=== PATIENT | female | born 1980 | race Caucasian/White ===

== ENCOUNTER 2017-05-13 11:43 | Emergency (ER) | payer OTHER ==
[~2017-05-13] VITALS: Ht 157.5 cm; Wt 69.8 kg
[~2017-05-13 11:43] MED LIST: CLINDAMYCIN HC300 MG PO; EXCEDRIN MIGRA1 EAC2 PO; IBUPROFEN600 MG PO; IBUPROFEN800 MG PO; NORCO 10-325 T1 EACH PO; ORTHO TRI-CYCL1 EACH PO; PENICILLIN V P500 MG PO; PERCOCET 5-3251 EACH PO
--- NOTE | 2017-05-14 01:00 | EKG ---
[facility] [address] [facility] [place], [place] [address] Signed Normal sinus rhythm Normal ECG No previous ECGs available Confirmed by KUSUM RUSS MD ([id number]) on 05/14/2017 1:00:30 AM Electronically Signed By: KUSUM RUSS MD 05/14/17 0100 PATIENT NAME: HARRISON LICEA Electrocardiogram DATE OF : 78 PHYSICIAN: KUSUM RUSS MD REPORT #: [id number] REPORT IS CONFIDENTIAL AND NOT TO BE RELEASED WITHOUT AUTHORIZATION
== END 2017-05-13 14:14 | disposition home or self-care (01) ==
LOC: ED 11:43
DX: O99.89 Other specified diseases and conditions complicating pregnancy, childbirth and the puerperium (principal); R07.9 Chest pain, unspecified; O99.332 Smoking (tobacco) complicating pregnancy, second trimester; F17.200 Nicotine dependence, unspecified, uncomplicated; Z3A.26 26 weeks gestation of pregnancy; Z79.891 Long term (current) use of opiate analgesic
CPT/HCPCS: 71020; 80053; 84484; 85025; 93005; 93010; 99284

== ENCOUNTER 2017-08-05 16:58 | Inpatient (IN) | payer OTHER ==
[~2017-08-05] VITALS: Ht 157.5 cm; Wt 79.0 kg
--- NOTE | 2017-08-07 11:05 | PR ---
[facility] [address] [facility] [place], [place] [address] Signed PP Progress Notes Datetime Report Generated by CPN: 08/07/2017 11:05 SUBJECTIVE: [id number] Pain: Within normal limits Nausea/Vomiting: Denies Vital Signs: [id number] Vital Signs: Reviewed; Within Normal Limits Notable Details: PP HGb/Hct = 9.0/26.4 EXAM: [id number] Abdomen/Uterus: Normal Lochia: Normal Extremities: Normal IMPRESSION/PLAN/PROCEDURES: [id number] Impression: Normal progression Plan: Continue present management Procedures: None Progress Notes: Doing well, without complaint Signing Physician: Naomi Craven MD CC: *Electronically Signed* 08/07/17 1105 NAOMI CRAVEN MD PATIENT NAME: HARRISON LICEA PROGRESS NOTE DATE OF : 78 PHYSICIAN: NAOMI CRAVEN MD RPT #: [id number] REPORT IS CONFIDENTIAL AND NOT TO BE RELEASED WITHOUT AUTHORIZATION
--- NOTE | 2017-08-08 11:13 | PR ---
[facility] [address] [facility] [place], [place] [address] Signed PP Progress Notes Datetime Report Generated by CPN: 08/08/2017 11:13 SUBJECTIVE: [id number] Pain: Within normal limits Nausea/Vomiting: Denies Vital Signs: [id number] Vital Signs: Reviewed; Within Normal Limits Notable Details: PP HGb/Hct = 9.0/26.4 EXAM: [id number] Abdomen/Uterus: Normal Lochia: Normal Extremities: Normal Exam Comments: DTR's 2+ no clonus. No edema. IMPRESSION/PLAN/PROCEDURES: [id number] Impression: Normal progression Plan: Discharge Procedures: None Progress Notes: No NAQVI's, no vision changes. Doing well, ready to go home. Signing Physician: Naomi Craven MD CC: *Electronically Signed* 08/08/17 1113 NAOMI CRAVEN MD PATIENT NAME: HARRISON LICEA PROGRESS NOTE DATE OF : 78 PHYSICIAN: NAOMI CRAVEN MD RPT #: [id number] REPORT IS CONFIDENTIAL AND NOT TO BE RELEASED WITHOUT AUTHORIZATION
== END 2017-08-08 11:30 | disposition home or self-care (01) | DRG 775 ==
LOC: FBCO 16:58 → FBC 19:00
PROVIDERS: ADMIT General Practice
PROC: 10E0XZZ Delivery of Products of Conception, External Approach (ICD-10-PCS; principal; 2017-08-06)
PROC: 0HQ9XZZ Repair Perineum Skin, External Approach (ICD-10-PCS; 2017-08-06)
PROC: 00HU33Z Insertion of Infusion Device into Spinal Canal, Percutaneous Approach (ICD-10-PCS; 2017-08-06)
PROC: 3E0R3CZ (ICD-10-PCS; 2017-08-06)
PROC: 3E0234Z Introduction of Serum, Toxoid and Vaccine into Muscle, Percutaneous Approach (ICD-10-PCS; 2017-08-08)
DX: O14.94 Unspecified pre-eclampsia, complicating childbirth (principal); Z37.0 Single live birth; Z23 Encounter for immunization; O70.0 First degree perineal laceration during delivery; Z3A.38 38 weeks gestation of pregnancy; O99.334 Smoking (tobacco) complicating childbirth; F17.210 Nicotine dependence, cigarettes, uncomplicated; O13.4 Gestational [pregnancy-induced] hypertension without significant proteinuria, complicating childbirth
CPT/HCPCS: 01960; 36415; 59025; 82565; 82570; 84156; 84450; 84520; 84550; 85025; 85027; 90707; 99213; J2540; J2550; J3010; J7120

== ENCOUNTER 2020-08-16 16:59 | Emergency (ER) | payer SELFPAY | END 2020-08-16 20:05 | disposition home or self-care (01) | LOC: ED 16:59 | DX: N93.9 Abnormal uterine and vaginal bleeding, unspecified (principal); F17.200 Nicotine dependence, unspecified, uncomplicated ==

== ENCOUNTER 2021-06-24 20:23 | Inpatient (IN) | payer SELFPAY ==
[~2021-06-24] VITALS: Ht 160 cm; Wt 79.4 kg
--- OUTSIDE RECORDS SUMMARY | 2021-06-24 20:30 | XMS ---
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 Lori has no Care Guidelines for this patient. [place] VISIT COUNT (12 MO.) [address] TOTAL 4 NOTE: Visits indicate total known visits. ED/C VISIT TRACKING (12 MO.) [facility] COMPLAINT: - DIFFICULTY BREATHING 06/18/2021 17:21 [facility] [place] TYPE: Emergency COMPLAINT: - DIFFICULTY BREATHING/WEAKNESS 06/16/2021 01:04 [facility] OR TYPE: Emergency DIAGNOSES: - chest pain, fever, headache - COVID-19 08/16/2020 16:59 [facility] [place] TYPE: Emergency COMPLAINT: - VAGINAL BLEEDING DIAGNOSES: - Abnormal uterine and vaginal bleeding, unspecified - Nicotine dependence, unspecified, uncomplicated - Delayed or excessive hemorrhage following incomplete spontaneous - Abnormal uterine and vaginal bleeding, unspecified INPATIENT VISIT TRACKING (12 MO.) No inpatient visits to display in this time frame [email or web address]
--- NOTE | 2021-06-24 23:59 | NUR ---
PT TO ROOM 118 VIA STRETCHER FROM ED. ALERT AND ORIENTED. ABLE TO TRANSFER SELF TO BED FROM STRETCHER. INCREASED RESPIRATIONS NOTED. 2.5L/NC IN PLACE. SpO2 95%. HR 100'S. AT REST PT REPORTS "SLIGHT" SOB AND PAIN WITH DEEP BREATHING. DRY COUGH NOTED. IV MEDICATION INFUSING WNL. PT EDUCATED ON PRONING. PT ORIENTED TO ROOM AND NURSE CALL LIGHT. SANDWICH BOX PROVIDED. WATER AND JUICE PROVIDED. NO FURTHER QUESTIONS OR CONCERNS AT THIS TIME. CALL LIGHT IN REACH.
--- NOTE | 2021-06-25 02:01 | NUR ---
PT ON LEFT SIDE RESTING WITH EYES CLOSED. SpO2 90-93% ON 2.5L/NC. HR 90'S. RESPIRATIONS 26.
--- NOTE | 2021-06-25 03:23 | NUR ---
PT RESTING IN BED ON LEFT SIDE WITH EYES CLOSED. RESPIRATIONS EVEN. SpO2 92% ON 2.5L/NC. HR 80'S.
--- NOTE | 2021-06-25 06:51 | NUR ---
ASSESSMENT COMPLETE. CRACKLES HEARD THROUGHOUT. SpO2 >90% ON 2.5 L/NC. PT REPORTS "FEELING MUCH BETTER ALREADY WITH THE OXYGEN". RESPIRATIONS EVEN. DRY COUGH NOTED. PT DENIES PAIN OR NAUSEA. NO FURTHER NEEDS. CALL LIGHT IN REACH.
--- NOTE | 2021-06-25 07:30 | NUR ---
RECEIVED REPORT AROUND 0700, PT WAS SLEEPING AT THAT TIME. NO NEW CONCERNS NOTED.
--- NOTE | 2021-06-25 08:17 | NUR ---
PATIENT AWAKE IN BED, VITALS CHARTED. FACE AND HANDS WASHED. CALL LIGHT IN REACH, NO OTHER NEEDS AT THIS TIME
--- NOTE | 2021-06-25 09:15 | NUR ---
UPPER LOBES CLEAR, LOWER LOBES ARE TIGHT. PT DOES STILL HAVE SOB AND TACHYCARDIA WITH ACTIVITY AND REMAINS ON 2.5L O2 NC. PT DID HOWEVER STATE THAT SHE WAS FEELING BETTER THAN YESTERDAY. NO OTHER CONCERNS WERE NOTED WITH FIRST ASSESSMENT THIS MORNING. WILL CONTINUE TO MONITOR.
--- NOTE | 2021-06-25 11:15 | NUR ---
PT IN ROOM. NO NEW CONCERNS NOTED AT THIS TIME.
--- NOTE | 2021-06-25 12:30 | NUR ---
UPPER LOBES CLEAR, LOWER LOBES STILL TIGHT WITH SOME COARSNESS NOTED. NO OTHER CONCERNS NOTED WITH ASSESSMENT. PT O2 STATUS UNCHANGED. V/S WDL, URINE OUTPUT WDL SO FAR.
--- NOTE | 2021-06-25 13:50 | NUR ---
Spoke with Liana by phone. States she tires easily, but is holli g to complete assessment. Pt lives in a 2 story home and was having trouble walking up and down stairs due to sob. She has children ages 3-25 living in her home and older ones will assist her. She does not use any DME. States she is laid off and does not have any insurance. Informed I have called May to assist her for OHP. States she has been staying with mom for the last week. I can hear pt becoming more sob as we speak and inform I will call her tomorrow and she state s she is ok, but I ended the call. Pt currently on .. Will check in with tomorrow.
--- NOTE | 2021-06-25 14:34 | NUR ---
PT IN ROOM, NO NEW CONCERNS NOTED.
--- NOTE | 2021-06-25 15:54 | NUR ---
Called to schedule appt with [facility] and pt was dc from their services and they will not take her back. Called and attempted to schedule with Camilla Lopez at [facility], office will call me back if they can accept her. Camilla Lopez is out of the office until the end of July, but this may be the best we can do as pt has a history of no showing for appts.
--- NOTE | 2021-06-25 16:43 | NUR ---
PATIENT AWAKE IN BED, THIS CHUTE BOSS EDUCATED PATIENT ON USING INCENTIVE SPIROMETER. PATIENT EXPRESSES UNDERSTANDING. PATIENT STATES SHE FEELS SOMEWHAT REFRESHED AFTER PRONING A FEW TIMES THIS AFTERNOON. RN NOTIFIED. FRESH ICE WATER PROVIDED, CALL LIGHT IN REACH, NO OTHER NEEDS AT THIS TIME
--- NOTE | 2021-06-25 16:49 | NUR ---
WHEN ENTERING PT ROOM IT WAS NOTED THAT O2 SATS ON 2L O2 NC WERE JUST AT 90%. RR 24. O2 SATS DROPPED TO 87% WITH TALKING. O2 WAS INCREASED TO 5L WITH NO CHANGE. PT NOW IS ON HIGH FLOW NC AT 5L O2. O2 SATS NOW UP TO 94%. RLL HAS NO SOUND PRESENT. ALL OTHE LOBES ARE TIGHT. PT IS USING IS BUT FOR ME WAS ONLY ABLE TO BRING IT UP TO 250. WILL CONTINUE TO MONITOR AND WILL LET MD KNOW.
--- NOTE | 2021-06-25 18:42 | NUR ---
PT WAS ON 2L O2 NC UNTIL ABOUT 1600 WHEN IT WAS NOTED THAT PT BARLEY STAYED AT 90% WHILE STILL IN BED. WHEN TALKING O2 SATS DROPPED TO 87% OR SO. PT IS USING I.S. AND IS ONLY ABLE TO GET IT UP TO ABOUT 250. RR WAS ALSO 24. AWARE. PT SINCE 1600 ON 5L O2 HIGH FLOW NC AND DOING WELL WITH IT. ALL LOBES ARE TIGHT AND HER RLL SOUNDS ARE ABSENT. PO INTAKE IS GOOD, URINE OUTPUT IS GOOD. NO OTHER ISSUES NOTED WITH ASSESSMENTS.
--- NOTE | 2021-06-25 19:17 | EKG ---
[facility] [address] [facility] [place], [place] [address] Signed Sinus tachycardia Possible Inferior infarct , age undetermined Abnormal ECG When compared with ECG of 13-MAY-2017 11:51, Borderline criteria for Inferior infarct are now present Confirmed by DYLAN CARCAMO DO ([id number]) on 06/25/2021 7:16:57 PM Electronically Signed By: DYLAN CARCAMO DO 06/25/211916 PATIENT NAME: ANUJAHARRISON CUNNINGHAM Electrocardiogram DATE OF : 78 PHYSICIAN: DYLAN CARCAMO DO REPORT #: [id number] REPORT IS CONFIDENTIAL AND NOT TO BE RELEASED WITHOUT AUTHORIZATION
--- NOTE | 2021-06-25 20:15 | NUR ---
PATIENT SITTING QUIETLY IN HER BED WATCHING TV AND HAS ASKED FOR CHOCOLATE MILK. PATIENT HAS NO OTHER CARE NEEDS AT THIS TIME. CALL LIGHT IS IN REACH. NEUROCRITICAL CARE PHYSICIAN CALLED TO GET CHOCOLATE MILK.
--- NOTE | 2021-06-25 21:12 | NUR ---
PATIENT HAS NOT RECIEVED HER CHOCOLATE MILK. CALLED THE GREEN PLUMBER AND SHE IS ON HER WAY TO THE KITCHEN TO GET CHOCOLATE MILK NOW. PATIENT INFORMED.
--- NOTE | 2021-06-25 21:40 | NUR ---
WELT STITCHER CAME AND INFORMED THIS RN WE HAVE NO CHOCOLATE MILK. PMAELA CHURCH HISTORY TEACHER GOING TO TELL THE PATIENT AND TO GET HER SOME HOT CHOCOLATE MIX IN REGULAR MILK AND TO GIVE PATIENT SOME CANDY A FRIEND DROPPED OFF FOR THE PATIENT.
--- NOTE | 2021-06-25 23:10 | NUR ---
PATIENT'S PM MEDS GIVEN ALONG WITH REQUESTED COUGH SYRUP AND TYLENOL FOR GENERAL BODY ACHES. PATIENT GIVEN NEW ICE WATER, TOILET HAT EMPTIED, VS STABLE AND I+O COMPLETE. PATIENT GIVEN GARNETT AND MUSTARD FOR HER SANDWICH WITH A PLASTIC KNIFE AND NAPKIN. PATIENT HAS NO OTHER CARE NEEDS AT THIS TIME. WILL RETURN WHEN PATIENT'S IV INFUSION IS COMPLETE. CALL LIGHT IS IN REACH.
--- NOTE | 2021-06-26 00:03 | NUR ---
PATIENT CALLED AND HER IV IS BEEPING. PATIENT'S IV INFUSION IS COMPLETE AND IV SALINE LOCKED. PATIENT HAS NO OTHER CARE NEEDS AT THIS TIME. CALL LIGHT IS IN REACH.
--- NOTE | 2021-06-26 02:00 | NUR ---
PATIENT RESTING ON HER RIGHT SIDE, EYES CLOSED, RESPIRATIONS REGULAR AND EVEN, CALL LIGHT IN REACH. O2 SATS 95% ON 5L/NC. HR=68 ON THE SAT MONITOR.
--- NOTE | 2021-06-26 03:19 | NUR ---
CHECKED IN WITH PATIENT SHE HAS NO NEEDS AT THIS TIME. "I'M FINE," SHE SAYS. SATS ARE 96% ON 5L/NC AND HR=69 PER SAT MONITOR. CALL LIGHT IS IN REACH.
--- NOTE | 2021-06-26 03:22 | NUR ---
PATIENT RESTING QUIETLY ON HER RIGHT SIDE IN BED. PATIENT'S EYES ARE CLOSED, RESPIRATIONS ARE REGULAR AND EVEN, AND HER CALL LIGHT IS IN REACH. PATIENT'S GRANDMOTHER IS ASLEEP ON THE COUCH IN THE ROOM.
--- NOTE | 2021-06-26 04:50 | NUR ---
PATIENT RESTING QUIETLY ON HER LEFT SIDE, EYES CLOSED, RESPIRATIONS REGULAR AND EVEN, CALL LIGHT IN REACH. O2 SATS=96% ON 5L/NC. CALL LIGHT IN REACH.
--- NOTE | 2021-06-26 06:53 | NUR ---
PATIENT SAYS SHE WAS ABLE TO SLEEP AFTER MY ROUNDS AFTER 2AM, BUT WOKE UP WHEN LAB CAME IN TO DRAW. PATIENT GOT UP AND VOIDED INDEPENDENTLY AND TOILET HAD DUMPED. PATIENT HAD NO OTHER CARE NEEDS AT THIS TIME AND IS SATING 96% ON HER 5L/NC HIGH FLOW. CALL LIGHT IS IN REACH.
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
--- NOTE | 2021-06-26 12:38 | NUR ---
ROUNDING ON PT. SHE STATES SHE IS DOING WELL AND IS NOT HUNGRY FOR LUNCH AT THIS TIME.
--- NOTE | 2021-06-26 14:26 | NUR ---
PT. IS UP IN THE CHAIR. SHE HAS PRONED TWICE THIS SHIFT AND IS USING I.S. HOURLY. CRACKLES PRESENT IN THE BASES OF LUNGS. AND BREATHING IS STILL SHALLOW. NONPRODUCTIVE COUGH. SHE STATES SHE IS ANXIOUS TO SEE KIDS AND REQUESTED THAT BRINGS WORRY STONE. DENIES HX OF ANXIETY. ON 3L O2 NC AND O2 SAT IS 91%. PT. BROUGHT WATER AND LEFT RESTING WITH CALL LIGHT IN REACH.
--- NOTE | 2021-06-26 15:37 | NUR ---
No chnge in plan for discharge. Appt scheduled with Camilla SALAS at [facility].
--- NOTE | 2021-06-26 18:05 | NUR ---
PT. USED CALL LIGHT APPROPRIATELY AND ASKED THIS NURSE TO BRING CREDIT CARD TO THE CELLULAR PHONE REPAIRER FOR HER TO DAY CARE HOME PROVIDER IN ORDER TO PAY FOR CHILDREN'S DINNER. CARD LEFT IN EVELOPE AT THE CELLULAR PHONE REPAIRER WITH INSTRUCTIONS TO ASK FOR I.D. BEFORE RELEASING.
--- NOTE | 2021-06-26 19:27 | NUR ---
Awake, watching tv, no c/o pain or sob
--- NOTE | 2021-06-26 21:00 | NUR ---
COOP WITH ASSESSMENT, O2 3.5L IN PLACE, LUNGS WITH DFINE CRACKLES, SOBWITH EXERTION, CPOX IN PLACE, SATS 85-87%, INCREASED TO 4l HIGH FLOW O2, SATS 90-91%. SHALLOW FAST RESPIRATION NOTED ON RETURN TO BED FROM BR. VOIDING QS AND TOLERATING LIQUIDS WELL, NO EMESIS, NO C/O PAIN. MEDICATED WITH COUGH SYRUP PER C/O DRY NON PRODUCTIVE COUGH. SL PATENT. INDEPENDENT INROOM, CONTINUES ON AIRBORNE ISOLATION PRECAUTIONS
--- NOTE | 2021-06-27 03:00 | NUR ---
pt reasting, eyes closed, no distress. cont on airborne isolation precautions.
--- NOTE | 2021-06-27 06:20 | NUR ---
Pt continues on airborne isolation precautions. Independent inroom, on 4LNC, CPOX 90-91%, harsh hacky cough present, received robitussin syrup per cough. SL patent, tolerated remdesevir tx well. SOB noted with exertion when returning to bed or when in phone wth family.c/o pain. cooperative, uses call light, no emesis, tolerating diet well
--- NOTE | 2021-06-27 08:15 | NUR ---
REPORT RECEIVED FROM NIGHT RN AND PT CARE RESUMED. PT IS ALERT AND ORIENTED. SHE STATES SHE HAS BEEN PRONING OVERNIGHT AND CONTINUES TO USE I.S. REGULARLY. SHE APPEARS LESS ANXIOUS. CPOX FINGER MONITOR REPLACED. 02 SAT IS 96% ON 3L NC. PT. REPORTS SOB WITH EXERTION AT TIMES. CRACKLES PRESENT BILAT. IN LOWER LOBES. IV SITE WNL AND FLUSHES WELL. REVIEWED PRONING EDUCATIONAL MATERIAL WITH PATIENT. LEFT RESTING IN BED WITH CALL LIGHT IN REACH.
--- NOTE | 2021-06-27 08:16 | NUR ---
PATIENT AWAKE IN BED. TAI FROM R/T IN ROOM FOR ASSESSMENT. FRESH ICE WATER PROVIDED, FACE AND HANDS WASHED. PATIENT STATED SHE TOOK HER NASAL CANULA OF EARLIER SO SHE COULD REACH THE TOILET, TAI PROVIDED A TUBE LEATHER CASE FINISHER. BREAKFAST PROVIDED. CALL LIGHT IN REACH, NO OTHER NEEDS AT THIS TIME
--- NOTE | 2021-06-27 14:33 | NUR ---
PT. REPORTS FEELING SOB AFTER OXYGEN WAS TITRATED DOWN THIS MORNING, BUT HAD NOT TOLD US EARLIER DUE TO WANTING TO GO HOME. RR WAS 34 AND O2 SAT. BETWEEN 88-91%. TITRATED TO 2L AND O2 SAT. IS 91% CRACKLES STILL PRESENT BILAT. IN BASES OF LUNGS. PT. PRONED AFTER LUNCH AND UP IN THE CHAIR NOW. IV SITE WNL. PT. LEFT RESTING WITH CALL LIGHT IN REACH.
--- NOTE | 2021-06-27 14:33 | NUR ---
PATIENT WITH HIGHER OXYGEN NEED TODAY. NO CHANGES TO DISCHARGE AT THIS TIME.
--- NOTE | 2021-06-27 20:04 | NUR ---
took pt her food delivery, no further needs at this time
--- NOTE | 2021-06-27 21:31 | NUR ---
pt o2 sats 91% on 1.5L. Up to shower. cooperative, denies feeling sob
--- NOTE | 2021-06-27 22:54 | NUR ---
Pt showered, independent in room, tolerated well, sats 88% on return w 2LNC, Resp 28 and went down to 20 after returning to bed. On 2L high flow O2. lungs with insp crackles bilat. amber sob w exertion but her resp go up. sl patent. voiding qs, hacky dry cough present, robitussin cough syrup given on request tolerating diet and fluids well. no c/o pain, pleasant and cooperative, alert and oriented
--- NOTE | 2021-06-28 01:07 | NUR ---
resting, eyes closed, no distress, O2 1LNC, CPOX 90%. continues on airborne precautions
--- NOTE | 2021-06-28 06:09 | NUR ---
Pt currently on 1L NC high flow O2, cpox sats 92%, Lungs with insp crackles, denies sob with exertion but increaesd resp rate noted with exertion. tolerating diet and liquids well, no emesis, no c/o pain, was medicated x1 with cough syrup per dry hacky cough. sl patent. showerd last night, slept mos of this night, voiding QS. on Airborne isolation precautions
--- NOTE | 2021-06-28 08:15 | NUR ---
REPORT RECIEVED FROM NIGHT RN AND PT. CARE RESUMED. PT. IS ALERT, ORIENTED. DENIES PAIN OR SOB. CRACKLES PRESENT BILAT. IN BASES OF LUNGS. PT. DEMONSTRATED USE OF I.S. DISCUSSED POC AND MEDS. CPOX IN PLACE. ON 2L NC AND O2 SAT IS 93%. IV SITE FLUSHES WELL. BREAKFAST BROUGHT IN AND PT. LEFT EATING WITH CALL LIGHT IN REACH.
[2021-06-28] MEDS ORDERED: DEXAMETHASONE6 MG PO (11:54)
--- NOTE | 2021-06-28 12:18 | NUR ---
PT. BROUGHT LUNCH AND UPDATED ON DISCHARGE PLAN
--- NOTE | 2021-06-28 15:07 | NUR ---
ALL DISCHARGE INSTRUCTIONS REVIEWED WITH PATIENT AND QUESTIONS ANSWERED. PT. DEMONSTRATED USE OF O2.SHE LEFT WITH ALL BELONGINGS VIA WHEELCHAIR AND PICKED UP BY MOTHER.
== END 2021-06-28 14:45 | disposition home or self-care (01) | DRG 177 ==
LOC: ED 20:23 → MS 22:33
PROVIDERS: ADMIT Student in an Organized Health Care Education/Training Program; ATTEND Student in an Organized Health Care Education/Training Program
PROC: XW033E5 Introduction of Remdesivir Anti-infective into Peripheral Vein, Percutaneous Approach, New Technology Group 5 (ICD-10-PCS; principal; 2021-06-24)
PROC: 3E0333Z Introduction of Anti-inflammatory into Peripheral Vein, Percutaneous Approach (ICD-10-PCS; 2021-06-24)
DX: U07.1 COVID-19 (principal); J96.01 Acute respiratory failure with hypoxia; J12.82 Pneumonia due to coronavirus disease 2019; F17.210 Nicotine dependence, cigarettes, uncomplicated; Z98.890 Other specified postprocedural states
CPT/HCPCS: 71045; 80053; 83735; 84484; 84703; 85025; 94761; 94762; 96374; 99285-25; A9270; J1100; J1650; J7050

== ENCOUNTER 2021-09-01 21:05 | Emergency (ER) | payer OTHER ==
[~2021-09-01] VITALS: Ht 160 cm; Wt 83.0 kg
[~2021-09-01 21:05] MED LIST changes: +DEXAMETHASONE6 MG PO
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
== END 2021-09-02 00:46 | disposition home or self-care (01) ==
LOC: ED 21:05
DX: S06.0X0A Concussion without loss of consciousness, initial encounter (principal); S80.12XA Contusion of left lower leg, initial encounter; S80.11XA Contusion of right lower leg, initial encounter; F10.129 Alcohol abuse with intoxication, unspecified; Y90.7 Blood alcohol level of 200-239 mg/100 ml; F15.10 Other stimulant abuse, uncomplicated; F17.200 Nicotine dependence, unspecified, uncomplicated; V47.5XXA Car driver injured in collision with fixed or stationary object in traffic accident, initial encounter
CPT/HCPCS: 70450; 71260; 72125; 74177; 80053; 84703; 85025; 99284-25; G0480; Q9967

== ENCOUNTER 2024-11-01 11:28 | Emergency (ER) | payer OTHER ==
[~2024-11-01] VITALS: Ht 160 cm; Wt 83.7 kg
--- OUTSIDE RECORDS SUMMARY | 2024-11-01 11:30 | XMS ---
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 Lori has no Care Guidelines for this patient. [place] VISIT COUNT (12 MO.) 1 [facility] TOTAL 1 NOTE: Visits indicate total known visits. ED/UCC VISIT TRACKING (12 MO.) 11/01/2024 11:29 [facility] TYPE: Emergency COMPLAINT: - SEIZURE INPATIENT VISIT TRACKING (12 MO.) No inpatient visits to display in this time frame [email or web address]
[2024-11-01] MEDS ORDERED: LORazepam 1 MG TAB PO ONE (12:30)
[2024-11-01] MEDS ORDERED: ondansetron HCL 4 MG/2 ML VIAL IV ONE (13:15)
[2024-11-01 13:19] LABS: BASOPHILS 1.2 % (0-2); EOSINOPHILS 4.3 % (0-6); HEMATOCRIT 38.2 % (35.0-50.0); LYMPHOCYTES 27.2 % (24-44); MCH 29.1 (27-36); MCV 85.6 fl (81-99); NEUTROPHILS 56.3 % (39-80); PLATELET COUNT 340 K/uL (140-440); RBC 4.46 M/ul (4.3-5.7); RDW 13.7 (10.5-15.0)
[2024-11-01 13:35] LABS: ALBUMIN 3.7 g/dL (3.4-5.0); ALBUMIN/GLOBULIN RATIO 1.09 (1.1-2.4); ALCOHOL, MEDICAL <3 ng/dL (<3); ALKALINE PHOSPHATASE 86 U/L (46-116); ALT (SGPT) 24 U/L (14-59); ANION GAP 13.3 (7-21); AST (SGOT) 14 U/L (15-37); BILIRUBIN, TOTAL 0.2 ng/dL (0.2-1.0); BUN/CREATININE RATIO 22.78 (6.0-28.6); CALCIUM 8.5 mg/dL (8.5-10.1); CARBON DIOXIDE 27 mmol/L (21-32); CHLORIDE 106 mmol/L (98-107); CREATININE, SERUM 0.79 mg/dL (0.55-1.02); GLOMERULAR FILTRATION RATE,EST 95 mL/min (>60); POTASSIUM 4.3 mmol/L (3.5-5.1); PROTEIN, TOTAL 7.1 g/dL (6.4-8.2); UREA NITROGEN 18 mg/dL (7-18)
[2024-11-01 14:19] LABS: AMPHETAMINES, URINE POSITIVE (NEGATIVE); BARBITURATES, URINE NEGATIVE (NEGATIVE); BENZODIAZEPINE, URINE POSITIVE (NEGATIVE); BUPRENORPHINE, URINE NEGATIVE (NEGATIVE); CANNABINOID, URINE NEGATIVE (NEGATIVE); COCAINE, URINE NEGATIVE (NEGATIVE); ECSTASY, URINE POSITIVE (NEGATIVE); FENTANYL, URINE NEGATIVE (NEGATIVE); METHADONE, URINE NEGATIVE (NEGATIVE); OPIATES, URINE NEGATIVE (NEGATIVE); OXYCODONE, URINE NEGATIVE (NEGATIVE); PHENCYCLIDINE, URINE NEGATIVE (NEGATIVE)
[2024-11-01 14:50] VITALS: BP 129/87
== END 2024-11-01 14:50 | disposition home or self-care (01) ==
LOC: ED 11:28
PROVIDERS: Emergency Medicine
DX: F43.0 Acute stress reaction (principal); F19.10 Other psychoactive substance abuse, uncomplicated; F17.200 Nicotine dependence, unspecified, uncomplicated
CPT/HCPCS: 36415; 51701; 70450; 80053; 80307; 85025; 99284-25; A9270-GY; G0480